=== PATIENT | male | born 2000 | race Caucasian/White ===

== ENCOUNTER 2022-05-02 12:54 | Emergency (ER) | payer OTHER ==
[2022-05-02 14:21] LABS: BASOPHIL 0.7 % (0-2); HCT 47.3 % (42.0-52.0); LYMPHOCYTE 28.6 % (15-48); MCHC 33.8 g/dL (32.0-36.0); MCV 88.7 fL (78.0-100.0); MONOCYTE 5.9 % (0-12); MPV 9.9 fL (6.0-9.5); NEUTROPHIL 59.4 % (41-80); NRBC 0; PLT 269 K/uL (150-400); RBC 5.33 M/uL (4.70-6.00); RDW 12.1 % (11.5-14.0); WBC 10.2 K/uL (4.0-10.5)
[2022-05-02 14:33] LABS: INR 0.99 (0.9-1.2); PROTHROMBIN TIME 12.8 SECONDS (11.9-13.9); PTT 30.3 SECONDS (24.9-34.6)
[2022-05-02 14:48] LABS: ALBUMIN 4.1 g/dL (3.4-5.0); ALKALINE PHOSHATASE 91 U/L (46-116); ALT 29 U/L (16-63); AST 19 U/L (15-37); BILIRUBIN - TOTAL 0.4 mg/dL (0.2-1.0); BUN 11 mg/dL (7-18); BUN/CREAT RATIO (CALC) 13.3 RATIO; CHLORIDE 105 mmol/L (98-107); CO2 (BICARBONATE) 28 mmol/L (21-32); CREATININE 0.83 mg/dL (0.67-1.17); GLOBULIN (CALCULATION) 3.4 g/dL; GLUCOSE 79 mg/dL (74-106); TOTAL PROTEIN 7.5 g/dL (6.4-8.2)
[2022-05-02] MEDS ORDERED: NAPROXEN500 MG PO ×2 (15:08→15:13)
== END 2022-05-02 15:16 | disposition home or self-care (01) ==
LOC: FER 12:54
PROVIDERS: Internal Medicine
DX: R07.89 Other chest pain (principal); F17.290 Nicotine dependence, other tobacco product, uncomplicated; Z28.310 Unvaccinated for COVID-19; Z82.49 Family history of ischemic heart disease and other diseases of the circulatory system
CPT/HCPCS: 36415; 71045; 80053; 84484; 85025; 85379; 85610; 85730; 93005; J1885